=== PATIENT | male | born 1990 | race African-American/Black ===

== ENCOUNTER 2024-04-09 08:53 | Observation (INO) | payer BC, OTHER ==
[2024-04-09 10:49] LABS: BASO % 0.4 % (0-2.0); EOS % 2.7 % (0-4.5); HEMATOCRIT 42.3 % (35.4-49); HEMOGLOBIN 14.4 GM/dL (11.7-16.9); LYMPH % 30.4 % (8-40); MCH 31.1 pg (25.7-33.7); MCHC 34.1 g/dl (32.0-35.9); MEAN CELL VOLUME 91.1 fl (80-96); MEAN PLT VOLUME 7.8 fl (7.5-11.1); MONO % 7.7 % (3.8-10.2); NEUT % 58.8 % (42.8-82.8); PLATELET COUNT 246 10^3/uL (134-434); RBC 4.64 M/mm3 (4.00-5.60); RDW 13.3 % (11.9-15.9); WHITE BLOOD COUNT 4.9 K/mm3 (4.0-10.0)
[2024-04-09 10:53] LABS: INR 0.9 (0.83-1.09); PROTHROMBIN TIME (PATIENT) 10.4 SEC (9.7-13.0)
[2024-04-09 10:56] LABS: ACTIVATED PTT 31.6 SECONDS (25.2-36.5)
[2024-04-09] MEDS ORDERED: TETRACAINE 0.5% OPHTH SOLN 2 ML BOTTLE OD ONE (11:14)
[2024-04-09 11:19] LABS: POTASSIUM 4.3 mmol/L (3.5-5.1)
[2024-04-09 11:23] LABS: ALBUMIN 3.9 g/dl (3.4-5.0); BLOOD UREA NITROGEN 12.8 mg/dL (7-18); CALCIUM 9.3 mg/dL (8.5-10.1)
[2024-04-09 11:26] LABS: CREATININE 1.3 mg/dL (0.55-1.3)
[2024-04-09 11:28] LABS: BILIRUBIN,TOTAL 0.4 mg/dL (0.2-1)
[2024-04-09] MEDS ORDERED: TETRACAINE 0.5% OPHTH SOLN 2 ML BOTTLE ONE (11:40)
[2024-04-09 11:55] LABS: URINE APPEARANCE CLEAR; URINE BILIRUBIN NEGATIVE (NEGATIVE); URINE COLOR YELLOW; URINE GLUCOSE (UA) NEGATIVE (NEGATIVE); URINE KETONE NEGATIVE (NEGATIVE); URINE LEUK ESTERASE NEGATIVE (NEGATIVE); URINE NITRITE NEGATIVE (NEGATIVE); URINE PROTEIN NEGATIVE (NEGATIVE); URINE UROBILINOGEN 0.2 mg/dL (0.2-1.0)
[2024-04-09 12:22] LABS: CHOLESTEROL 199 mg/dL (50-200)
[2024-04-09 12:23] LABS: LDL CHOLESTEROL (ONLY SJRH) 113 mg/dL (5-100)
[2024-04-09 12:26] LABS: HDL CHOLESTEROL 61 mg/dL (40-60)
[2024-04-09 17:05] VITALS: BMI 33.8
[2024-04-09] MEDS: predniSONE 20 MG TABLET (UD) PO SCH (17:21)
[2024-04-09] MEDS: valACYclovir HCL 500 MG TABLET (FP) PO SCH (17:22)
[2024-04-09] MEDS: LOSARTAN 50MG/HCTZ 12.5MG 1 TAB PO SCH (18:16)
[2024-04-09 21:58] LABS: METHADONE, UR NEGATIVE (NEGATIVE); OPIATES, URI NEGATIVE (NEGATIVE); PHENCYCLIDINE,URINE NEGATIVE (NEGATIVE); URINE BARBITURATES NEGATIVE (NEGATIVE); URINE BENZODIAZEPINES NEGATIVE (NEGATIVE)
[2024-04-09 22:00] LABS: URINE AMPHETAMINES NEGATIVE (NEGATIVE)
[2024-04-09 22:01] LABS: COCAINE, UR NEGATIVE (NEGATIVE)
[2024-04-10] MEDS: ACETAMINOPHEN 325 MG TABLET (FP) PO PRN (09:14)
[2024-04-10] MEDS: ENOXAPARIN NA (PORCINE) 40 MG/0.4 ML DISP.SYRIN SQ SCH (09:15)
[2024-04-10 09:17] LABS: HEMOGLOBIN 15.3 GM/dL (11.7-16.9); MEAN CELL VOLUME 91.2 fl (80-96); MEAN PLT VOLUME 7.9 fl (7.5-11.1); PLATELET COUNT 287 10^3/uL (134-434); RBC 4.94 M/mm3 (4.00-5.60); RDW 13.3 % (11.9-15.9); WHITE BLOOD COUNT 11.3 K/mm3 (4.0-10.0)
[2024-04-10 09:36] LABS: CHLORIDE 101 mmol/L (98-107); SODIUM 136 mmol/L (136-145)
[2024-04-10 09:47] LABS: GLUCOSE,RANDOM 121 mg/dL (74-106)
[2024-04-10 09:48] LABS: CREATININE 1.2 mg/dL (0.55-1.3)
[2024-04-10 09:49] LABS: ALBUMIN 3.9 g/dl (3.4-5.0); ANION GAP 9 mmol/L (4-13); BLOOD UREA NITROGEN 12.5 mg/dL (7-18); CALCIUM 9.7 mg/dL (8.5-10.1); CO2 26 mmol/L (21-32); PHOSPHOROUS 4.3 mg/dL (2.5-4.9); SGOT/AST 13 U/L (15-37); SGPT/ALT 27 U/L (13-61)
[2024-04-10 09:50] LABS: BILIRUBIN,TOTAL 0.6 mg/dL (0.2-1); MAGNESIUM 1.8 mg/dL (1.8-2.4); TOT PROT 7.4 g/dl (6.4-8.2)
[2024-04-10 09:51] LABS: ALK PHOS 71 U/L (45-117)
[2024-04-10 10:29] VITALS: PULSE 78; TEMP 98.6
[2024-04-10 12:29] LABS: ERYTHROCYTE SEDIMENTATION RATE 8 mm/hr (0-10)
[2024-04-10 14:34] VITALS: BP 156/93; RESP 72
== END 2024-04-10 18:21 | disposition home or self-care (01) ==
LOC: JER 08:53 → JERBED 12:23 → J6S 14:41
PROVIDERS: ADMIT Internal Medicine; ATTEND Internal Medicine
PROC: 3E013GC Introduction of Other Therapeutic Substance into Subcutaneous Tissue, Percutaneous Approach (ICD-10-PCS; principal; 2024-04-09)
DX: H53.2 Diplopia (principal); I10 Essential (primary) hypertension; F17.210 Nicotine dependence, cigarettes, uncomplicated; H53.8 Other visual disturbances
CPT/HCPCS: 0241U-QW; 36415; 70450-TC; 70496-TC; 70498-TC; 70553-TC; 71046-TC-FY; 80053; 80061; 80307; 81003; 83036; 83735; 84100; 84484; 85025; 85027; 85610; 85651; 85730; 86140; 87086; 93005; 93010; 99285-25; G0378